=== PATIENT | female | born 1980 | race Caucasian/White ===

== ENCOUNTER 2020-03-19 12:11 | Emergency (ER) | payer SELFPAY ==
[~2020-03-19] VITALS: Ht 170.2 cm; Wt 68.2 kg
[2020-03-19 12:13] VITALS: TEMP 98
[2020-03-19 12:42] LABS: BASO # 0.1 (0.0-0.2); BASO % 0.6 % (0.0-2.0); EOS % 0.2 % (0-4.0); GRAN # 7.7 (1.4-6.5); GRAN % 82.8 % (42.2-75.2); HEMATOCRIT 37.5 % (37.0-47.0); HEMOGLOBIN 13.1 g/dl (12.5-16.0); LYMPH # 1.2 (1.2-3.4); LYMPH % 12.9 % (20.0-51.0); MEAN CELL VOLUME 90 fl (80.0-100.0); MEAN CORPUSCULAR HEMOGLOBIN 32 pg (27.0-31.0); MEAN CORPUSCULAR HGB CONC 35 g/dl (33.0-37.0); MONO # 0.3 (0.1-0.6); MONO % 3.2 % (1.7-9.3); PLATELET COUNT 271 K/mm3 (130-400); RED BLOOD COUNT 4.15 M/mm3 (4.10-5.30); REDCELL DISTRIBUTION WIDTH-CV 12.5 % (11.5-14.5)
[2020-03-19 13:12] LABS: ALCOHOL(ethanol),MEDICAL < 10 mg/dL; TROPONIN-I < 0.012 ng/mL (0.000-0.035)
[2020-03-19 13:47] LABS: ALBUMIN 4.4 gm/dL (3.5-5.0); BILIRUBIN,TOTAL 0.5 mg/dL (0.0-1.0); CREATININE, serum 0.62 (0.52-1.25); TOTAL PROTEIN 7.1 gm/dL (6.4-8.2)
[2020-03-19 15:17] VITALS: BP 106/63; PULSE 94
== END 2020-03-19 15:23 | disposition home or self-care (01) ==
LOC: COL.ER
PROVIDERS: Emergency Medicine
DX: R55 Syncope and collapse (principal); Z32.02 Encounter for pregnancy test, result negative
CPT/HCPCS: J1200; J1885; J2765; J7030